=== PATIENT | male | born 1960 | race Caucasian/White ===

== ENCOUNTER 2017-05-18 09:28 | Emergency (ER) | payer BC, OTHER ==
[2017-05-18 09:37] VITALS: BP 137/74; PULSE 59; RESP 20; TEMP 98
--- NOTE | 2017-05-18 11:14 | XR ---
EXAMINATION TYPE: XR elbow complete RT DATE OF EXAM: 05/18/2017 CLINICAL HISTORY: Slip and fall injury with right elbow pain. TECHNIQUE: Frontal, lateral and oblique images of the right elbow are obtained. COMPARISON: None FINDINGS: There is no acute fracture/dislocation evident in the right elbow. No abnormal fat pad si gns are seen. Mild spurring of the ulnohumeral joint is maintained. The overlying soft tissue appears unremarkable. IMPRESSION: There is no acute fracture or dislocation in the right elbow.
--- NOTE | 2017-05-18 11:16 | XR ---
EXAMINATION TYPE: XR hand complete RT DATE OF EXAM: 05/18/2017 CLINICAL HISTORY: Right hand pain after fall TECHNIQUE: Frontal, lateral and oblique images of the right hand are obtained. COMPARISON: None. FINDINGS: There is no acute fracture/dislocation evident in the right hand. There is extensive arthr opathy of the right first carpometacarpal joint with subchondral cysts, radial subluxation, bony prod uctive changes, opposing surface sclerosis and joint space loss. Mild degenerative changes are seen o f the distal interphalangeal joints to a much lesser degree. IMPRESSION: There is no acute fracture or dislocation in the right hand. Extensive arthropathy of th e first carpometacarpal joint and to a much lesser degree the distal interphalangeal joints with dist ribution favoring osteoarthritis.
--- NOTE | 2017-05-18 11:50 | ED ---
Upper Extremity HPI - General Chief Complaint: Extremity Injury, Upper Stated Complaint: FALL ON ICE/ RT ARM/HAND INJURY Time Seen by Provider: 05/18/17 10:26 Source: patient, RN/MD, RN notes reviewed, old records reviewed Mode of arrival: ambulatory Limitations: no limitations - History of Present Illness Initial Comments: This is a pleasant 56 year old male whom reports he slipped on ice two days ago and fell on his right hand. He also reports that he cannot fully extend his right elbow. 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 Patient reports he has noticed swelling in his right first metacarpal and reports pain with full extension of elbow. Denies peripheral paresthesias. Denies shoulder pain. Denies any other injury associated with the fall. - Related Data Previous Rx's Medication Instructions Recorded Naproxen [EC-Naprosyn] 500 mg PO BID #20 tablet. 05/18/17 traMADol HCl [Ultram] 50 mg PO Q6H PRN #20 tab 05/18/17 Allergies Allergy/AdvReac Type Severity Reaction Status Date / Time No Known Allergies Allergy Verified 05/18/17 09:43 Review of Systems ROS Statement: Those systems with pertinent positive or pertinent negative responses have been documented in the HPI. ROS Other: All systems not noted in ROS Statement are negative. Past Medical History Additional Past Medical History / Comment(s): change in bowel habits History of Any Multi-Drug Resistant Organisms: None Reported Past Surgical History: Appendectomy Additional Past Surgical History / Comment(s): orbital eye surg. Past Anesthesia/Blood Transfusion Reactions: No Reported Reaction Smoking Status: Never smoker Past Alcohol Use History: None Reported Past Drug Use History: None Reported General Exam - General Exam Comments Initial Comments: This is a 56 year old male, no distress. Limitations: no limitations General appearance: alert, in no apparent distress Head exam: Present: atraumatic, normocephalic, normal inspection Eye exam: Present: normal appearance, PERRL, EOMI. Absent: scleral icterus, conjunctival injection, periorbital swelling ENT exam: Present: normal exam, mucous membranes moist Neck exam: Present: normal inspection. Absent: tenderness, meningismus, lymphadenopathy Respiratory exam: Present: normal lung sounds bilaterally. Absent: respiratory distress, wheezes, rales, rhonchi, stridor Cardiovascular Exam: Present: regular rate, normal rhythm, normal heart sounds. Absent: systolic murmur, diastolic murmur, rubs, gallop, clicks Right Upper Arm exam: Present: normal inspection, full ROM Elbow exam: Present: normal inspection. Absent: full ROM (Patient is only abble to extend to 160 degrees. ), tenderness, swelling Forearm Wrist exam: Present: normal inspection, full ROM Hand Wrist exam: Present: full ROM (patient has full ROM of fingers and hands. Thumb ROM limited with swelling. ), tenderness (over thumb and first metacarpal. ), swelling. Absent: normal inspection, laceration, erythema, amputation, nail avulsion, subungual hematoma Neuro motor exam: Present: wrist extension intact, thumb opposition intact, thumb IP flexion intact, thumb adduction intact, fingers 2-5 abduction intact Neurosensory exam: Present: radial nerve intact, ulnar nerve intact, median nerve intact Vascular: Present: normal capillary refill Neurological exam: Present: alert, oriented X3, CN II-XII intact Psychiatric exam: Present: normal affect, normal mood Skin exam: Present: warm, dry, intact, normal color. Absent: rash Course Vital Signs 05/18/17 09:35 Temperature 98.0 F Pulse Rate 59 L Respiratory 20 Rate Blood Pressure 137/74 O2 Sat by Pulse 99 Oximetry Medical Decision Making - Medical Decision Making 56 male presents with right elbow pain and right hand pain. He fell two days ago. He has significant swelling to first metacarpal joint. He has limited extension with the elbow. Paitent xrays show no fracture. Patient does have significant arthropathy within the first metacarpal joint. Patient was placed in a sling for elbow pain and thumb spica splint. Patient advised to follow up with orthopedic. Patient understands treatment plan and will comply. Return parameters discussed. - Radiology Data Radiology results: report reviewed There is no acute fracture or dislocation in the right hand. extensive arthorpathy of the first carpometacarpal and to a much lesser degree the distal interphangeal joints with distribution favoring osteoarthritis. There is no acute fracture or dislocation in the right elbow. Disposition Clinical Impression: Swelling of right hand, Elbow sprain Disposition: HOME SELF-CARE Condition: Good Instructions: Elbow Sprain (ED), Hand Sprain (ED) Additional Instructions: Patient advised to take the medications as prescribed. Follow-up with primary care physician and animal control specialist within 1-2 days. Patient should remain in the splint as well. Return to emergency department if any alarming signs or symptoms occur. Prescriptions: Naproxen [EC-Naprosyn] 500 mg PO BID #20 tablet. traMADol HCl [Ultram] 50 mg PO Q6H PRN #20 tab PRN Reason: Pain Referrals: Fer Hernandez MD [Primary Care Provider] - 1-2 days Edwin Esparza DO [Doctor of Osteopathic Medicine] - 1-2 days Time of Disposition: 11:48
== END 2017-05-18 12:05 | disposition home or self-care (01) ==
LOC: EC 09:28
DX: S53.401A Unspecified sprain of right elbow, initial encounter (principal); M79.89 Other specified soft tissue disorders; W00.0XXA Fall on same level due to ice and snow, initial encounter; Y92.89 Other specified places as the place of occurrence of the external cause
CPT/HCPCS: 29105; 99284

== ENCOUNTER → 2017-06-29 | Outpatient (CLI) | payer BC | END | disposition home or self-care (01) | LOC: PTMAIN 13:11 | PROVIDERS: ATTEND Otolaryngology | DX: R13.10 Dysphagia, unspecified (principal) | CPT/HCPCS: 31579 ==

== ENCOUNTER → 2017-06-29 | Outpatient (CLI) | payer BC ==
--- NOTE | 2017-06-29 12:01 | FL ---
EXAMINATION: Cervical and Thoracic Esophagram DATE OF EXAM: 06/29/2017 CLINICAL INDICATION: 56-year-old male with esophageal pain in the throat when swallowing for one aisha h. Patient reports a neck injury and symptoms since then. COMPARISON: None Total Fluoroscopy Time: 1 minute 57 seconds. Total images: 54 FINDINGS: The swallowing mechanism is normal. However, there is a small lateral outpouching that projects later ally and posteriorly from the cervical esophagus at the C7-T1 level. This intermittently fills and em pties. In addition, there is some angulation of the cervical esophagus at this level during passage o f a contrast bolus. The thoracic portion as a normal course and and caliber. Mild tertiary peristaltic contractions are p resent. The mucosa is normal and no persistent filling defect is encountered. There is a small sliding hiatal hernia. This fills with contrast via reflux from the remainder of the stomach during Valsalva. No gastroesophageal reflux is seen on this exam. IMPRESSION: 1. Small outpouching that projects towards the left from the cervical esophagus at the C7-T1 level. A small diverticulum is suggested. Given the patient's reported neck injury, a small posttraumatic div erticulum is possible. 2. There is also some undulation to the esophagus during passage of a contrast bolus at this level, p ossible intermittent spasm. Consider direct visualization. 3. Small sliding hiatal hernia. Contrast refluxes into this hernia during Valsalva. No GERD seen duri ng the course of this exam.
== END | disposition home or self-care (01) ==
LOC: RADFLMAIN 08:11
PROVIDERS: ATTEND Otolaryngology
DX: K44.9 Diaphragmatic hernia without obstruction or gangrene (principal); R93.8 Abnormal findings on diagnostic imaging of other specified body structures
CPT/HCPCS: 74220

== ENCOUNTER → 2019-11-23 | Outpatient (CLI) | payer BC ==
--- NOTE | 2019-11-23 17:13 | CT ---
EXAMINATION TYPE: CT abdomen pelvis w con DATE OF EXAM: 11/23/2019 COMPARISON: None HISTORY: Abdominal pain CT DLP: 1041.9 mGycm Automated exposure control for dose reduction was used. TECHNIQUE: Helical acquisition of images from the lung bases through the pelvis have been completed. CONTRAST: Performed with Oral Contrast and with IV Contrast, patient injected with 100 mL of Isovue 300. FINDINGS: There is a left inguinal hernia containing fat. LUNG BASES: No significant abnormality is appreciated. AORTA: No significant abnormality is appreciated. LIVER/GB: No significant abnormality is appreciated. PANCREAS: No significant abnormality is seen. SPLEEN: No significant abnormality is seen. ADRENALS: No significant abnormality is seen. KIDNEYS: No significant abnormality is seen. REPRODUCTIVE ORGANS: No significant abnormality is seen BOWEL: Diverticular changes associated with the sigmoid colon. FREE AIR: No Free Air visible. ASCITES: None visible. PELVIC ADENOPATHY: None visualized. RETROPERITONEAL ADENOPATHY: No Retroperitoneal Adenopathy visible. URINARY BLADDER: No significant abnormality is seen. OSSEOUS STRUCTURES: Degenerative disc changes are noted in the lumbar spine especially at L5-S1. IMPRESSION: DIVERTICULOSIS. LEFT INGUINAL HERNIA.
== END | disposition home or self-care (01) ==
LOC: RADCTMAIN 14:47
PROVIDERS: ATTEND Surgery Plastic and Reconstructive Surgery
DX: K57.30 Diverticulosis of large intestine without perforation or abscess without bleeding (principal); K40.90 Unilateral inguinal hernia, without obstruction or gangrene, not specified as recurrent
CPT/HCPCS: 74177; Q9967

== ENCOUNTER 2019-11-29 07:53 | Day surgery (SDC) | payer BC ==
[2019-11-26 13:25] VITALS: BMI 28.8
--- NOTE | 2019-11-29 06:44 | P.GSHP ---
History of Present Illness H&P Date: 11/29/19 CHIEF COMPLAINT: Colon screen HISTORY OF PRESENT ILLNESS: The patient is a 59-year-old male who presents for colon screen. Lower endoscopy was offered for further evaluation and management. PAST MEDICAL HISTORY: Please see list. PAST SURGICAL HISTORY: Please see list. MEDICATIONS: Please see list. ALLERGIES: Please see list. SOCIAL HISTORY: No illicit drug use FAMILY HISTORY: No reports of Crohn disease or ulcerative colitis. REVIEW OF ORGAN SYSTEMS: CONSTITUTIONAL: No reports of fevers or chills. PHYSICAL EXAM: VITAL SIGNS: Stable GENERAL: Well-developed pleasant in no acute distress. HEENT: No scleral icterus. Extraocular movements grossly intact. Moist buccal mucosa. NECK: Supple without lymphadenopathy. CHEST: Unlabored respirations. Equal bilateral excursions. CARDIOVASCULAR: Regular rate and rhythm. Distal 2+ pulses. ABDOMEN: Soft, nontender, nondistended. MUSCULOSKELETAL: No clubbing, cyanosis, or edema. ASSESSMENT: 1. Colon screen. PLAN: 1. Recommend proceeding with a lower endoscopy Past Medical History Additional Past Medical History / Comment(s): change in bowel habits History of Any Multi-Drug Resistant Organisms: None Reported Past Surgical History: Appendectomy Additional Past Surgical History / Comment(s): orbital eye surg. Colonoscopy. Past Anesthesia/Blood Transfusion Reactions: No Reported Reaction Smoking Status: Never smoker - Past Family History Mother Family Medical History: No Reported History Medications and Allergies Home Medications Medication Instructions Recorded Confirmed Type polyethylene glycoL 3350 [Miralax] 17 gm PO DAILY 11/26/19 11/26/19 History Allergies Allergy/AdvReac Type Severity Reaction Status Date / Time No Known Allergies Allergy Verified 11/26/19 13:29
[~2019-11-29 07:53] MED LIST: LACTATED RINGERS 1,000 ML IV SCH
[2019-11-29 08:05] VITALS: TEMP 98.2
[2019-11-29 08:13] VITALS: RESP 16
[2019-11-29] MEDS ORDERED: LIDOCAINE 1% (10MG/ML) FOR IV START INTRADERMA ONE (08:17)
[2019-11-29] MEDS ORDERED: PROPOFOL 10 MG/ML 20 ML VIAL IV ONE (08:50)
[2019-11-29 09:57] VITALS: BP 145/88; PULSE 62
--- NOTE | 2019-11-29 10:05 | P.PCN ---
Date of Procedure: 11/29/19 Description of Procedure: PREOPERATIVE DIAGNOSIS: Personal history of colon polyps POSTOPERATIVE DIAGNOSIS: Personal history of colon polyps Tubular adenoma sigmoid colon Tubular adenoma rectum Sigmoid diverticulosis Pandiverticulosis OPERATION: Colonoscopy to the ileocecal valve and appendiceal orifice, cecum Colonoscopy with multiple hot snare polypectomies Colonoscopy with cold forceps biopsies SURGEON: Silvia Mathis MD. ANESTHESIA: MAC. INDICATIONS: The patient is an 66-year-old male who presents family history of malignant colon polyps and personal history of colon polyps. Last colonoscopy 5 years. Benefits and risks were described and informed consent was obtained. DESCRIPTION OF PROCEDURE: The patient had undergone Suprep. He had been brought into the operating room and laid in the left lateral decubitus position. After adequate intravenous sedation, the rectum was examined with 2% lidocaine jelly. The prostate was unremarkable. External hemorrhoids were encountered. The rectal tone was within normal limits. No lesions were palpated in the rectal vault. An Olympus colon oscope was advanced until the cecum, ileocecal valve and appendiceal orifice were clearly viewed. The prep was fair. Sigmoid diverticulosis was encountered. Multiple colonic polyps were found and snare polypectomy. No evidence of focal colitis was found. Retroflexion of the scope demonstrated grade 2 internal hemorrhoids without active bleeding or inflammation. The colon was desufflated. The patient had tolerated the procedure well. Withdrawal time was over 6 minutes. FINDINGS: Aronchick preparation quality scale 3 (1-5) No internal hemorrhoids No external hemorrhoids No arteriovenous malformations. Sigmoid diverticulosis, severe pandiverticulosis Removal of 9 polyps: - Snare polypectomy 20 cm from the anal verge x 5, 5 to 7 mm tubulovillous adenoma polyp, sigmoid colon - Snare polypectomy 11 cm from the anal verge, 8 mm flat villous adenoma polyp, rectum - Snare polypectomy 18 cm from the anal verge, 12 mm flat villous adenoma polyp, sigmoid colon - Cold forceps biopsy at 21 cm from the anal verge, 4 mm polyp, sigmoid colon - Cold forceps biopsy at 22 cm from the anal verge, 5 mm polyp, sigmoid colon No focal colitis. RECOMMENDATIONS: Given severity of tubular adenomas, recommend repeat colonoscopy 1 year, 2029 Plan - Discharge Summary Discharge Rx Participant: No New Discharge Prescriptions: Continue polyethylene glycoL 3350 [Miralax] 17 gm PO DAILY Discharge Medication List polyethylene glycoL 3350 [Miralax] 17 gm PO DAILY 11/26/19 [History] Follow up Appointment(s)/Referral(s): Silvia Mathis MD [STAFF PHYSICIAN] - 12/04/19 Patient Instructions/Handouts: Colorectal Polyps (DC) Activity/Diet/Wound Care/Special Instructions: Repeat colonoscopy one year, 2020 Discharge Disposition: HOME SELF-CARE
== END 2019-11-29 10:06 | disposition home or self-care (01) ==
LOC: ORWHC2ENDO 07:53
PROVIDERS: ATTEND Surgery Plastic and Reconstructive Surgery
DX: Z12.11 Encounter for screening for malignant neoplasm of colon (principal); K63.5 Polyp of colon; K62.1 Rectal polyp; K57.30 Diverticulosis of large intestine without perforation or abscess without bleeding; K64.4 Residual hemorrhoidal skin tags; K64.1 Second degree hemorrhoids; Z86.010 Personal history of colon polyps; Z80.0 Family history of malignant neoplasm of digestive organs; Z98.890 Other specified postprocedural states
CPT/HCPCS: 88305; 45380; 45385; J2704

== ENCOUNTER → 2019-12-07 | Outpatient (CLI) | payer BC | END | disposition home or self-care (01) | LOC: LABPAT 13:47 | PROVIDERS: ATTEND Surgery Plastic and Reconstructive Surgery | DX: Z01.810 Encounter for preprocedural cardiovascular examination (principal) | CPT/HCPCS: 93005 ==

== ENCOUNTER 2020-01-17 07:06 | Day surgery (SDC) | payer BC ==
[2020-01-14 15:52] VITALS: BMI 28.8
[~2020-01-17 07:06] MED LIST changes: +DEXAMETHASONE SOD PHOSPHATE 4 MG/ML 1 ML VIAL IV ONE; +HEPARIN SODIUM,PORCINE 5,000 UNIT/ML 1 ML VIAL SQ ONE; +LIDOCAINE 1% (10MG/ML) FOR IV START INTRADERMA PRN; +MIDAZOLAM 2 MG/2 ML VIAL IV PRN; +ONDANSETRON 4 MG/2 ML VIAL IVP ONE
[2020-01-17] MEDS ORDERED: ACETAMINOPHEN TAB 500 MG TAB PO STA (07:44)
[2020-01-17] MEDS ORDERED: TAMSULOSIN 0.4 MG CAP.ER.24H PO STA (07:44)
[2020-01-17] MEDS ORDERED: GABAPENTIN 300 MG CAP PO STA (07:44)
--- NOTE | 2020-01-17 07:47 | P.GSHP ---
History of Present Illness H&P Date: 01/17/20 CHIEF COMPLAINT: Inguinal hernia, left HISTORY OF PRESENT ILLNESS: The patient is a 53-year-old male who presents with a history of swelling and pain along the left groin. He's noted increased swelling including pain of the area. Now he presents for repair of his inguinal hernia. PAST MEDICAL HISTORY: Please see list. PAST SURGICAL HISTORY: Please see list. MEDICATIONS: Please see list. ALLERGIES: Please see list. SOCIAL HISTORY: No illicit drug use FAMILY HISTORY: No reports of Crohn disease or ulcerative colitis. REVIEW OF ORGAN SYSTEMS: CONSTITUTIONAL: No reports of fevers or chills. No reports of weight loss despite prior attempts. GI: Denies any blood in stools or constipation. PHYSICAL EXAM: VITAL SIGNS: Stable GENERAL: Well-developed pleasant male in no acute distress. HEENT: No scleral icterus. Extraocular movements grossly intact. Moist buccal mucosa. NECK: Supple without lymphadenopathy. CHEST: Unlabored respirations. Equal bilateral excursions. CARDIOVASCULAR: Regular rate and rhythm. Distal 2+ pulses. ABDOMEN: Soft, nondistended. No peritoneal signs. Palpable defect of the left groin. MUSCULOSKELETAL: No clubbing, cyanosis, or edema. ASSESSMENT: 1. Inguinal hernia, left PLAN: 1. Recommend proceeding with a robotic inguinal repair with mesh with possible bilateral approach. 2. Benefits and risks of surgical intervention was discussed including possibility of open technique. 3. DVT prophylaxis. 4. Antibiotic prophylaxis. Past Medical History Past Medical History: Osteoarthritis (OA) Additional Past Medical History / Comment(s): diverticulosis, migraines, "slow heart beat", History of Any Multi-Drug Resistant Organisms: None Reported Past Surgical History: Appendectomy Additional Past Surgical History / Comment(s): orbital eye surgery on left eye Past Anesthesia/Blood Transfusion Reactions: No Reported Reaction Smoking Status: Never smoker - Past Family History Mother Family Medical History: No Reported History Medications and Allergies Home Medications Medication Instructions Recorded Confirmed Type polyethylene glycoL 3350 [Miralax] 17 gm PO DAILY 11/26/19 01/17/20 History Allergies Allergy/AdvReac Type Severity Reaction Status Date / Time latex Allergy Rash/Hives Verified 01/14/20 15:53 Surgical - Exam Vital Signs Temp Pulse Resp BP Pulse Ox 98.5 F 57 L 16 126/76 96 01/17/20 07:30 01/17/20 07:30 01/17/20 07:30 01/17/20 07:30 01/17/20 07:30
[2020-01-17] MEDS ORDERED: ACETAMINOPHEN TAB 500 MG TAB ONE (07:49)
[2020-01-17 08:38] LABS: African American GFR (CKD) >90 (>60 ml/min/1.73 sqM); Anion Gap 4 mmol/L; Blood Urea Nitrogen 19 mg/dL (9-20); Calcium 8.8 mg/dL (8.4-10.2); Carbon Dioxide 22 mmol/L (22-30); Chloride 108 mmol/L (98-107); Glucose 98 mg/dL (74-99); Non-African American GFR(CKD) >90 (>60 ml/min/1.73 sqM); Sodium 134 mmol/L (137-145)
[2020-01-17 08:46] LABS: Potassium 5.3 mmol/L (3.5-5.1)
[2020-01-17] MEDS ORDERED: LIDOCAINE 1%-EPI 1:100,000 20 ML VIAL SQ ONE (08:53)
[2020-01-17 08:58] LABS: Basophils # (A) 0.1 k/uL (0-0.2); Basophils % (A) 1 %; Eosinophils # (A) 0.2 k/uL (0-0.7); Eosinophils % (A) 3 %; HCT 42.5 % (39.0-53.0); HGB 14.1 gm/dL (13.0-17.5); Lymphocytes # (A) 1.9 k/uL (1.0-4.8); Lymphocytes % (A) 26 %; MCH 30.1 pg (25.0-35.0); MCHC 33.2 g/dL (31.0-37.0); MCV 90.5 fL (80.0-100.0); Mean Platelet Volume 7.2; Monocytes # (A) 0.4 k/uL (0-1.0); Monocytes % (A) 5 %; Neutrophils # (A) 4.6 k/uL (1.3-7.7); Neutrophils % (A) 64 %; Platelet Count 318 k/uL (150-450); RDW 13.3 % (11.5-15.5); WBC 7.2 k/uL (3.8-10.6)
[2020-01-17] MEDS ORDERED: ROPIVACAINE 5 MG/ML 30 ML VIAL ONE (08:59)
[2020-01-17] MEDS ORDERED: LIDOCAINE 1% INJ 10MG/ML (20 ML MDV) ONE (08:59)
[2020-01-17] MEDS ORDERED: PROPOFOL 10 MG/ML 20 ML VIAL IV ONE (08:59)
[2020-01-17] MEDS ORDERED: fentaNYL (PF) 50 MCG/ML 2 ML AMP ONE (08:59)
[2020-01-17] MEDS ORDERED: NEOSTIGMINE 1 MG/ML 10 ML VIAL ONE (08:59)
[2020-01-17] MEDS ORDERED: DEXAMETHASONE SOD PHOSPHATE 4 MG/ML 1 ML VIAL ONE (08:59)
[2020-01-17] MEDS ORDERED: SUCCINYLCHOLINE CHLORIDE 100 MG/5 ML SYR IV ONE (08:59)
[2020-01-17] MEDS ORDERED: GLYCOPYRROLATE 0.2 MG/ML 2 ML VIAL ONE (08:59)
[2020-01-17] MEDS ORDERED: HYDROmorphone (PF) 1 MG/ML ONE (08:59)
[2020-01-17] MEDS ORDERED: ROCURONIUM 10 MG/ML (10 ML VIAL) IV ONE (08:59)
[2020-01-17] MEDS ORDERED: MIDAZOLAM 2 MG/2 ML VIAL ONE (08:59)
[2020-01-17] MEDS ORDERED: LACTATED RINGERS 1,000 ML IV ONE ×2 (10:29→12:13)
--- NOTE | 2020-01-17 10:44 | P.OP ---
Date of Procedure: 01/17/20 Description of Procedure: SURGEON: SILVIA MATHIS MD PREOPERATIVE DIAGNOSES: 1. Initial left inguinal hernia 2. Pre-existing bradycardia, asymptomatic POSTOPERATIVE DIAGNOSES: 1. Initial left inguinal hernia, indirect 3 cm, reducible 2. Pre-existing bradycardia, asymptomatic OPERATION: 1. Robotic assisted da Nawaf Xi laparoscopic reduction and repair of left inguinal hernia repair with ventralight ST mesh, 11.4 cm. Anesthesia: GETA, local Estimated Blood Loss (ml): 5 Pathology: other (Left inguinal sac) Condition: stable Disposition: floor COMPLICATIONS: None. Operative Findings: 1. Large left inguinal indirect hernia, 3 cm, Nyhus type II INDICATIONS: The patient is a 59-year-old gentleman who presents with history of left inguinal hernia. Now presents for definitive surgical intervention. Laparoscopic versus open and robotic approaches were discussed. Benefits and risks including bleeding, infection, injury to the vas deferens as well as sterility and chronic groin pain were reviewed. Placement of mesh was also described. Informed consent was obtained. DESCRIPTION: In the preoperative area, the patient was marked with indelible marker along the left groin. The patient was brought to the operating room and laid in supine position. After general induction, the abdomen had been prepped and draped in standard sterile fashion. Ioban draping was also placed. Prior to incision, a timeout protocol was confirmed with surgical team regarding patient's name including procedures to be performed and location along the left groin. Initial positioning for the robotic assisted ports were selected whereby 20 cm superior to the target anatomy, 0 degree 5 mm laparoscopic trocar entry was performed at the left upper quadrant. The abdomen was insufflated to 15 mmHg which he had tolerated well. Diagnostic laparoscopy demonstrated left inguinal hernia defect, indirect. The right groin was unremarkable. Next, along the epigastrium, 8 mm robot trocar was placed. An 8-mm robotic trocar was placed under direct visualization at the right upper quadrant. The 5 mm port was exchanged for a 8 mm trocar. All trocars were positioned between 8 to 10-cm apart from each other. The patient was placed in steep reverse Trendelenburg position, 17. The [employer] XI robot was primed, draped, prepared for docking along the upper abdomen of the patient. I then went to the [employer]Learning console. The licensed investment sales assistant was at bedside for exchange of the robot arms and equipment. At the left groin, over 3 cm indirect inguinal hernia was identified. The hernia sac was evaginated whereby the peritoneum was scored using Endo scissors with cautery. The hernia sac had reached to the scrotum and was transected. Once completely reduced into the abdominal cavity, the peritoneal sac of the hernia was identified. The sac was resected and then passed off for further pathological analysis. The size of the hernia defect was 3 cm with intraoperative films obtained. Using nonabsorbable 2-0 VLOC, the peritoneal defect of the left inguinal hernia site was closed using a pursestring suture. The defect was found to be completely closed with complete reduction of the left inguinal hernia was confirmed. As an onlay, an 11.[address] mesh by [employer] was cut in half and entered into the abdominal cavity via the 8 mm trocar. The mesh was tacked to the pelvis using nonabsorbable 2-0 VLOC x 9-inch length sutures. The robot was undocked from the patient's bedside. I then rescrubbed into the case. Insufflation was released from the abdominal cavity and all instruments were removed from the abdominal cavity. Additional palm pressure was applied along the left groin as well as releasing any air along the scrotum and left groin. The rest of incisions were reapproximated using 4-0 Monocryl in a running subcuticular fashion. Local anesthetic was placed along the incision including for a groin block. Incisions were cleansed using dilute hydrogen peroxide. Liquid glue was applied to the skin. At the end of the procedure, the needle, sponge and instrument counts had been verified correct by the rn surgical pcu. The patient had tolerated the procedure well and was taken to the postanesthesia care unit in stable condition. Intraoperative findings were described to the patient's family who were pleased with the level of care. Plan - Discharge Summary Discharge Rx Participant: Yes New Discharge Prescriptions: New Ibuprofen [Motrin] 600 mg PO Q8HR PRN #30 tab PRN Reason: Pain Acetaminophen Tab [Tylenol Tab] 1,000 mg PO Q6HR PRN #30 tablet PRN Reason: Pain Continue polyethylene glycoL 3350 [Miralax] 17 gm PO DAILY Discharge Medication List polyethylene glycoL 3350 [Miralax] 17 gm PO DAILY 09/28/20 [History] Acetaminophen Tab [Tylenol Tab] 1,000 mg PO Q6HR PRN #30 tablet 01/17/20 [Rx] Ibuprofen [Motrin] 600 mg PO Q8HR PRN #30 tab 01/17/20 [Rx] Follow up Appointment(s)/Referral(s): Silvia Mathis MD [STAFF PHYSICIAN] - 01/22/20 Patient Instructions/Handouts: Inguinal Hernia Repair (DC), Laparoscopic Herniorrhaphy (IP) Activity/Diet/Wound Care/Special Instructions: No lifting over 10 pounds in 2 weeks until Jan 30June shower. No bath tub soaks for two weeks until Jan 30 Diet as tolerated. Use Tylenol and ibuprofen or Aleve scheduled for the next 24-48 hours for best pain relief. Use ice along incisions for the today to prevent swelling. Discharge Disposition: HOME SELF-CARE
[2020-01-17] MEDS: HYDROmorphone 0.5 MG/0.5 ML SYRINGE IVP PRN ×3 (10:45→11:24)
--- NOTE | 2020-01-17 11:06 | P.ANPRN ---
Procedure Note - Anesthesia - Nerve Block Performed Bilateral Transversus Abdominis Single Time Out Performed: Yes Date of Procedure: 01/17/20 Procedure Start Time: 07:57 Procedure Stop Time: 08:07 Location of Patient: PreOp Indication: Acute Post-Operative Pain, Requested by Surgeon Sedation Type: Sedate with meaningful contact maintained Preparation: Sterile Prep Position: Supine Needle Types: Pajunk Needle Gauge: 21 Ultrasound used to visualize needle placement: Yes Ultrasound used to observe medication spread: Yes Blood Aspirated: No Pain Paresthesia on Injection Noted: No Resistance on Injection: Normal Image Stored and Saved: Yes Events: Uneventful and Well Tolerated (ropi .5% 20cc plus dexamethasone 4mg bilatrally)
[2020-01-17 11:14] VITALS: TEMP 98
[2020-01-17] MEDS ORDERED: KETOROLAC 15 MG/ML 1 ML VIAL IVP ONE (11:38)
[2020-01-17] MEDS ORDERED: TAMSULOSIN 0.4 MG CAP.ER.24H PO ONE (13:00)
[2020-01-17 13:01] VITALS: RESP 20
[2020-01-17 14:10] VITALS: BP 118/73; PULSE 73
== END 2020-01-17 14:08 | disposition home or self-care (01) ==
LOC: OR 07:06
PROVIDERS: ATTEND Surgery Plastic and Reconstructive Surgery
DX: K40.90 Unilateral inguinal hernia, without obstruction or gangrene, not specified as recurrent (principal); R00.1 Bradycardia, unspecified; M19.90 Unspecified osteoarthritis, unspecified site; G43.909 Migraine, unspecified, not intractable, without status migrainosus; K57.90 Diverticulosis of intestine, part unspecified, without perforation or abscess without bleeding; Z91.040 Latex allergy status; Z98.890 Other specified postprocedural states; Z90.49 Acquired absence of other specified parts of digestive tract; Z79.899 Other long term (current) drug therapy
CPT/HCPCS: 64488; 80048; 85025; 88302; 49650; C1781; J2250; J1644; J1100; J2710; J0690; J2405; J2001; J3010; J1170 ×2; J2795; J1885; J0330; J2704